=== PATIENT | female | born 1985 | race Caucasian/White ===

== ENCOUNTER 2016-10-10 05:55 | Emergency (ER) | payer OTHER ==
[~2016-10-10] VITALS: Ht 177.8 cm; Wt 129.3 kg
--- NOTE | ~2016-10-10 | CR142 ---
[facility]. [facility] A Service of [facility] & [facility] RADIOLOGY TEXT RESULTS PATIENT: CLIFFORD MARTINEZ LOCATION: SED : 85 UNIT #: [id number] AGE: [address]: Saroj Heath MD SEX: F ORDER DR: [id number] [place] [id number] E MR#: [id number] Acc #: [id number] NAME: CLIFFORD MARTINEZ : 1985 SEX: F STUDY DATE/TIME: 10/10/2016 6:29 UNIT: SED ROOM: STUDY DESCRIPTION: CR Hand Min 3 Views Rt Attending Physician: Saroj Heath M.D. Ordering Physician: Saroj Heath M.D. Primary Care Physician: No Primary Care Physician MEDICAL IMAGING REPORT This report is preliminary unless electronic signature is present. EXAM Right hand. INDICATIONS Right hand pain and trauma. FINDINGS Three views of the right hand without comparison. There is no acute fracture or dislocation. Alignment is anatomic. No foreign body. IMPRESSION Negative right hand. Dictated by... Matthew Blackburn M.D. THIS IS AN ELECTRONICALLY VERIFIED REPORT Matthew Blackburn M.D. at 10/10/2016 3:09 PM FIDEL/micheal TD: 10/10/2016 08:55 JOB #: [id number] MEDICAL IMAGING REPORT Page 1 of 1
[~2016-10-10 05:55] MED LIST: ALBUTEROL17 GM NEB; DELSYM COUGH C PO; DILANTIN PO; IBUPROFEN PO; KEFLEX PO; MEDROL PO; MOBIC PO; NASONEX17 GM; NORCO 5/325 TAB1 TAB PO; PEN-VEE K PO; TAMIFLU75 M1 DOB; THERA FLU PO; TUSSIN MAX15 MG/5 M1 PO; ULTRACET TABLET1 TAB PO; VICODIN PO; ZITHROMAX PO; ZYRTEC PO
[2016-10-10] MEDS ORDERED: NO MEDICATIONS (06:10)
== END 2016-10-10 07:03 | disposition home or self-care (01) ==
LOC: SED 05:55
DX: S60.221A Contusion of right hand, initial encounter (principal); F17.200 Nicotine dependence, unspecified, uncomplicated; X58.XXXA Exposure to other specified factors, initial encounter; Y92.009 Unspecified place in unspecified non-institutional (private) residence as the place of occurrence of the external cause
CPT/HCPCS: 29125; 73130; 99283